=== PATIENT | female | born 1990 | race Hispanic/Latino ===

== ENCOUNTER 2021-02-11 09:27 | Outpatient (CLI) | payer OTHER ==
[2021-02-11] MEDS ORDERED: LACTATED RINGERS 1,000 ML IV ONE (10:15)
--- NOTE | 2021-02-11 12:46 | Ultrasound Report ---
ULTRASOUND BIOPHYSICAL PROFILE ULTRASOUND OB LIMITED INDICATION: well being TECHNIQUE: Transabdominal ultrasound imaging. COMPARISON: None FINDINGS: breathing movement = 2 Gross body movement = 2 tone = 2 Qualitative amniotic fluid volume = 2 Total biophysical score = 8/8 Amniotic fluid index is 19.5 cm. Presentation is cephalic. heart rate is 131 beats per minute. IMPRESSION: biophysical profile equals 8/8. Signer Name: Warren Staley Jr, MD Signed: 02/11/2021 12:42 PM Workstation Name: [id number]
[2021-02-11 13:19] LABS: Bacteria,Urine 1+ /HPF (Negative); Bilirubin,Urine NEG (Negative); Blood,Urine NEG (Negative); Color,Urine Yellow (Yellow); Mucus,Urine FEW /HPF; Protein,Urine <15 mg/dL mg/dL (Negative); Urobilinogen,Urine < 2.0 mg/dL (<2.0)
[2021-02-11 13:28] VITALS: BP 112/56
== END 2021-02-11 14:11 | disposition home or self-care (01) ==
LOC: TRG 09:27 → APU 09:28 → TRG 14:11
PROVIDERS: ATTEND Obstetrics & Gynecology
DX: Z34.93 Encounter for supervision of normal pregnancy, unspecified, third trimester (principal); Z3A.38 38 weeks gestation of pregnancy
CPT/HCPCS: 59025; 76815; 76819; 81001; J7120

== ENCOUNTER 2021-02-13 08:18 | Inpatient (IN) | payer OTHER ==
[2021-02-13] MEDS ORDERED: ONDANSETRON 4 MG/2 ML INJ IV PRN (08:44)
[2021-02-13] MEDS ORDERED: ePHEDrine SULFATE 50 MG/1 ML INJ IV PRN ×2 (08:44→12:00)
[2021-02-13] MEDS ORDERED: OXYTOCIN 10 UNIT/1 ML INJ IM PRN (08:44)
[2021-02-13] MEDS ORDERED: ACETAMINOPHEN 325 MG TAB PO PRN (08:44)
[2021-02-13] MEDS ORDERED: miSOPROStol 200 MCG TAB PR PRN (08:44)
[2021-02-13] MEDS ORDERED: TERBUTALINE 1 MG/1 ML INJ SUB-Q PRN (08:44)
[2021-02-13] MEDS ORDERED: fentaNYL 100 MCG/2 ML INJ IV PRN (08:44)
[2021-02-13] MEDS ORDERED: CARBOPROST TROMETHAMINE 250 MCG/1 ML INJ IM PRN (08:44)
[2021-02-13] MEDS ORDERED: BUTORPHANOL 2 MG/1 ML INJ IV PRN (08:44)
[2021-02-13] MEDS ORDERED: METHYLERGONOVINE MALEATE 0.2 MG/ML VIAL IM PRN (08:44)
[2021-02-13] MEDS ORDERED: LOPERAMIDE 2 MG CAP PO PRN (08:44)
[2021-02-13] MEDS ORDERED: LIDOCAINE (2%) 20 MG/1 ML VIAL 20 ML MDV INFILTRATI ONE (08:44)
[2021-02-13] MEDS ORDERED: NALOXONE 0.4 MG/1 ML INJ IV PRN (08:44)
[2021-02-13] MEDS ORDERED: OXYTOCIN DRIP 30 UNITS/500 ML BAG IV SCH ×3 (09:00→17:00)
[2021-02-13 09:49] LABS: Hematocrit 41.3 % (30.3-42.9); Mean Corpuscular HGB Conc 34 % (30-34); Mean Corpuscular Volume 87 fl (79-97); Platelet Count 184 K/mm3 (140-440); Red Blood Count 4.75 M/mm3 (3.65-5.03)
[2021-02-13] MEDS: LACTATED RINGERS 1,000 ML IV SCH ×2 (10:18→11:31)
--- NOTE | 2021-02-13 11:47 | Anesthesia Consultation ---
Anesthesia Consult and Med Hx Date of service: 02/13/21 - Airway Anesthetic Teeth Evaluation: Poor ROM Head & Neck: Adequate Mental/Hyoid Distance: Adequate Mallampati Class: Class II - Pulmonary Exam CTA: Yes - Cardiac Exam Cardiac Exam: RRR - Pre-Operative Health Status ASA Pre-Surgery Classification: ASA2 Proposed Anesthetic Plan: Epidural - Pulmonary Hx Smoking: Yes (quit 2months ago) Hx Asthma: No Hx Respiratory Symptoms: No SOB: No COPD: No Home Oxygen Therapy: No Hx Pneumonia: No Hx Sleep Apnea: No - Cardiovascular System Hx Hypertension: No Hx Coronary Artery Disease: No Hx Heart Attack/AMI: No Hx Angina: No Hx Percutaneous Transluminal Coronary Angioplasty (PTCA): No Hx Cardia Arrhythmia: No Hx Pacemaker: No Hx Internal Defibrillator: No Hx Valvular Heart Disease: No Hx Heart Murmur: No Hx Peripheral Vascular Disease: No - Central Nervous System Hx Neuromuscular Disorder: Yes (Discectomy L4-5, L5-S1) Hx Seizures: No CVA: No Hx Back Pain: No Hx Psychiatric Problems: No - Gastrointestinal Hx Ulcer: No Hx Gastroesophageal Reflux Disease: Yes - Endocrine Hx Renal Disease: No Hx End Stage Renal Disease: No Hx Cirrhosis: No Hx Liver Disease: No Hx Insulin Dependent Diabetes: No Hx Non-Insulin Dependent Diabetes: No Hx Thyroid Disease: No Hx Hypothyroidism: No Hx Hyperthyroidism: No - Hematic Hx Anemia: No Hx Sickle Cell Disease: No - Other Systems Hx Alcohol Use: No Hx Substance Use: No Hx Cancer: No Hx Obesity: Yes
--- NOTE | 2021-02-13 11:52 | Progress Note ---
Labor Epidural - Labor Epidural Start Time: 10:50 Stop Time: 11:10 Performed by:: BRANDEN GAGE Procedure: Patient is requesting a laboring epidural for laboring pain. Patient IDed, H&P reviewed, all questions and concerns were answered, and consent was signed. Timeout was performed at bedside. Patient in sitting position. Sterile prep and drape was performed. [3] ml of 1% lidocaine skin wheal at L[3]- L [4]. 18- gauge Kimani epidural needle was advanced to loss of resistance with saline technique 6cm x one attempt. Negative CSF negative blood. Epidural catheter advanced to [10] centimeters. [NEGATIVE] Aspiration [NEGATIVE] test dose. Sterile dressing applied. Patient tolerated procedure.
[2021-02-13] MEDS ORDERED: NALOXONE 2 MG/2 ML INJ IV PRN (12:00)
[2021-02-13] MEDS ORDERED: fentaNYL-BUPIV 2 MCG/ML-0.125% 200 MCG/100 ML BAG EPIDURAL SCH (12:00)
--- NOTE | 2021-02-13 14:16 | History and Physical Report ---
History of Present Illness Date of examination: 02/13/21 Date of admission: 02/13/21 08:19 Chief complaint: contractions, my water broke History of present illness: Pt is a 30 year old female NOAH 02/19/2021 at 39w1d who presents with contractions and leakage of fluid since ~730 am this morning. She denies vaginal bleeding. She has had care at [facility] since 15 wks complicated by abnormal pap smear, limited anatomy scan with finding of bilateral pyelectasis with MFM referral and abnormal finding not found, UTI with negative test of cure, and glucose intolerance. She is GBS Negative. Past History Past Medical History: no pertinent history Past Surgical History: other (back surgery in 2010; elbow surgery) [employer] History: abnormal PAP smear Family/Genetic History: diabetes, cancer Social history: no significant social history - Obstetrical History Expected Date of Delivery: 02/19/21 Actual Gestation: 39 Week(s) 1 Day(s) : 3 Para: 1 Hx # Term Pregnancies: 1 Number of Pregnancies: 0 Spontaneous Abortions: 1 Induced : 0 Number of Living Children: 1 Medications and Allergies Allergies Allergy/AdvReac Type Severity Reaction Status Date / Time latex AdvReac Severe Swelling Verified 02/13/21 08:47 Active Meds: Active Medications Acetaminophen (Acetaminophen 325 Mg Tab) 650 mg PO Q4H PRN PRN Reason: Pain, Mild (1-3) Butorphanol Tartrate (Butorphanol 2 Mg/1 Ml Inj) 1 mg IV Q2H PRN PRN Reason: Pain, Moderate(4-6) LABOR PAIN Carboprost Tromethamine (Carboprost Tromethamine 250 Mcg/1 Ml Inj) 250 mcg IM ONCE PRN PRN Reason: Uterine Bleeding Ephedrine Sulfate (Ephedrine Sulfate 50 Mg/1 Ml Inj) 10 mg IV Q2M PRN PRN Reason: Hypotension Ephedrine Sulfate (Ephedrine Sulfate 50 Mg/1 Ml Inj) 10 mg IV Q2M PRN PRN Reason: Hypotension Fentanyl (Fentanyl 100 Mcg/2 Ml Inj) 100 mcg IV Q2H PRN PRN Reason: Pain,Severe (7-10) LABOR PAIN Oxytocin/Sodium Chloride (Pitocin/Ns 30 Unit/500ml) 30 units in 500 mls @ 2 mls/hr IV TITR IRMA; Protocol Lactated Ringer's (Lactated Ringers) 1,000 mls @ 125 mls/hr IV DIRECT IRMA Last Admin: 02/13/21 11:31 Dose: 999 mls/hr Documented by: Oxytocin/Sodium Chloride (Pitocin/Ns 30 Unit/500ml) 30 units in 500 mls @ 40 mls/hr IV TITR IRMA; Protocol Fentanyl/Bupivacaine/Sodium Chlor (Fentanyl-Bupiv 2 Mcg/Ml-0.125%) 200 mcg in 100 mls @ 12 mls/hr EPIDURAL TITR IRMA; Protocol Last Admin: 02/13/21 11:56 Dose: 12 mls/hr Documented by: Loperamide HCl (Loperamide 2 Mg Cap) 2 mg PO ONCE PRN PRN Reason: give with Hemabate Methylergonovine Maleate (Methylergonovine Maleate 0.2 Mg/Ml Vial) 0.2 mg IM ONCE PRN PRN Reason: Uterine Bleeding Mineral Oil (Mineral Oil 30 Ml Oral Liqd) 30 ml PO QHS PRN PRN Reason: Constipation Misoprostol (Misoprostol 200 Mcg Tab) 800 mcg MI ONCE PRN PRN Reason: Uterine Bleeding Naloxone HCl (Naloxone 0.4 Mg/1 Ml Inj) 0.1 mg IV Q2MIN PRN PRN Reason: Res Rate </= 8 or 02 SAT < 92% Naloxone HCl (Naloxone 2 Mg/2 Ml Inj) 0.2 mg IV Q5M PRN PRN Reason: Respiratory sedation Ondansetron HCl (Ondansetron 4 Mg/2 Ml Inj) 4 mg IV Q8H PRN PRN Reason: Nausea And Vomiting Oxytocin (Oxytocin 10 Unit/1 Ml Inj) 10 unit IM ONCE PRN PRN Reason: Uterine Bleeding Terbutaline Sulfate (Terbutaline 1 Mg/1 Ml Inj) 0.25 mg SUB-Q ONCE PRN PRN Reason: Hyperstimulation/Hypertonicity Review of Systems All systems: negative - Vital Signs Vital signs: Vital Signs Pulse BP 99 H 130/62 02/13/21 08:21 02/13/21 08:21 Temp Pulse Resp BP Pulse Ox 71 100/54 98 02/13/21 14:15 02/13/21 14:03 02/13/21 14:15 - Physical Exam Breasts: Positive: deferred Abdomen: Positive: soft (obese, gravid ) Genitourinary (Female): Positive: normal external genitalia Uterus: Positive: enlarged (gravid) Extremities: Positive: edema (trace) - Obstetrical FHR: category 2 Uterine Contraction Monitor Mode: External Cervical Dilatation: 5 Cervical Effacement Percentage: 90 station: -2 Uterine Contraction Pattern: Regular Uterine Tone Measurement Phase: Resting Uterine Contraction Intensity: Moderate Results Result Diagrams: 02/13/21 09:10 Abnormal lab results 02/13/21 Range/Units 09:10 WBC 17.9 H (4.5-11.0) K/mm3 All other labs normal. Assessment and Plan A: IUP at 39w1d SROM Latent Labor Abnormal Pap Smear Limited anatomy scan with finding of bilateral pyelectasis with MFM referral and abnormal finding not found UTI with negative test of cure Glucose intolerance GBS Negative P: Admit to labor and delivery Routine intrapartum care IUPC placed Closely monitor maternal and status
[2021-02-13] MEDS ORDERED: BICITRA ORAL LIQD 30ML PO SCH (16:21)
[2021-02-13] MEDS ORDERED: FAMOTIDINE 20 MG/2 ML INJ IV SCH (16:21)
[2021-02-13] MEDS ORDERED: METOCLOPRAMIDE 10 MG/2 ML INJ IV SCH (16:21)
[2021-02-13] MEDS ORDERED: LACTATED RINGERS 1,000 ML IV SCH (16:30)
[2021-02-13] MEDS ORDERED: ceFAZolin/Water 2 GM/20 ML 2 GM/20 ML SYRINGE IV NR (17:00)
--- NOTE | 2021-02-13 17:43 | Anesthesia Day of Surgery ---
Anesthesia Day of Surgery - Day of Surgery Patient Examined: Yes Patient H&P Reviewed: Yes Patient is NPO: Yes Beta Blockers: No Cardiac Clearance: No Pulmonary Clearance: No Juan Diego's Test: N/A
[2021-02-13] MEDS ORDERED: ONDANSETRON 4 MG/2 ML INJ ONE (18:10)
[2021-02-13] MEDS ORDERED: PHENYLEPHRINE/NS 1,000 MCG/10 ML SYRINGE (OR USE) IV ONE (18:10)
[2021-02-13] MEDS ORDERED: WATER FOR IRRIG STERILE 1,500 ML BOTTLE IR ONE (18:22)
[2021-02-13] MEDS ORDERED: SODIUM CHLORIDE 0.9% IRR 1,500 ML BOTTLE IR ONE (18:22)
[2021-02-13] MEDS ORDERED: BUPIVACAINE/PF (0.25%) 2.5 MG/ML 30 ML VIAL INFILTRATI ONE ×2 (18:29)
[2021-02-13] MEDS ORDERED: CARBOPROST TROMETHAMINE 250 MCG/1 ML INJ IM ONE (18:40)
[2021-02-13] MEDS ORDERED: miSOPROStol 200 MCG TAB ONE (18:40)
[2021-02-13] MEDS ORDERED: PHENYLEPHRINE 10 MG/1 ML INJ SDV ONE (18:50)
[2021-02-13] MEDS ORDERED: dexAMETHasone 20 MG/5 ML VIAL ONE (19:54)
--- NOTE | 2021-02-13 20:00 | Procedure Note ---
OB Delivery Note - Delivery Date of Delivery: 02/13/21 Surgeon: RANJNAA ANSARI - Section Preop diagnosis: nonreassuring FHR tracing Postop diagnosis: same section procedure: section, primary low transverse Disposition: PACU Complications: intra-op hemorrhage Narrative: Please see operative report. - Infant A at 1 minute: 5 at 5 minutes: 8 Gender: Male (3170g (7lb 0oz) @ 1837 pm)
--- NOTE | 2021-02-13 20:08 | Operative Report ---
Operative Report Operative Report: Date of procedure: February 13, 2021 Preoperative diagnosis: 1) IUP at 39w1d 2) SROM 3) NRFHTs- repetitive late decelerations 4) Obesity Postoperative diagnosis: Same Procedure: Primary low transverse section Surgeon: Lyubov Montalvo M.D. Anesthesia: Regional Findings: 1) Viable male , Apgars 5 and 8, weight 3170 g, (7 lb 0 oz) in cephalic presentation. Terminal Meconium. 2) Normal-appearing uterus ovaries and tubes Estimated blood loss: 0 mL IV fluids: 1300 mL Urine output: 150 mL, blood tinged at the end of the procedure Drains: Beverly to gravity Specimens: None Complications:None. Counts correct x 3 Disposition: Stable to PACU Indication for procedure: Pt is a 30 year old female at 39w1d admitted for SROM who progressed to 7 cm and began having repetitive late decelerations. The decision was made to proceed with delivery. Operation in detail: After the risks, benefits, alternatives and complications were explained to the patient she gave informed consent for the procedure. She was subsequently taken to the operating room where regional anesthesia was noted to be adequate. She was placed in the dorsal supine position with leftward tilt and prepped and draped in a normal sterile fashion. heart tones were noted prior to incision. A timeout was performed. A Pfannenstiel skin incision was made with the knife and carried down to the layer of the fascia with the Bovie. The fascia was incised in the midline and the fascial incision was extended bilaterally with the Bovie. The fascial incision was then stretched. The rectus muscles were then in the midline and partially transected for adequate visualization. The peritoneum was then entered bluntly. The peritoneal incision was extended with good visualization of the bladder. The peritoneal incision was then stretched. An Terrence retractor was placed. The bladder blade was then placed. The vesicouterine peritoneum was grasped with smooth pick ups and incised with Metzenbaum scissors. A bladder flap was then created digitally and the bladder blade was replaced. A transverse incision was made in the lower uterine segment with a knife and extended bilaterally with the bandage scissors with the shoulder visible with the hysterotomy. The head delivered with difficulty and with the help of a vaginal hand and after extending the hysterotomy vertically both superior and inferior to the horizontal portion of the incision, followed by delivery of the shoulders and body. bulb suctioned at delivery. Cord clamped and cut. handed to NICU staff in attendance. The placenta was then delivered manually. The uterus was then exteriorized and cleared of all clots and debris. The vertical portions of the hysterotomy were reapproximated with 0-Monocryl in a running locked fashion. The horizontal portion of the hysterotomy was then reapproximated with 0 Monocryl in a running locked fashion. The left apex of the incision was reapproximated with 2-0 Chromic in a running locked fashion. The hysterotomy was inspected and hemostasis was noted. The gutters were irrigated and cleared of all clots and debris. The uterus was placed back into the peritoneal cavity. The hysterotomy was again inspected and noted to be hemostatic. Surgicel was placed over the hysterotomy. The Terrence retractor was removed. The peritoneum was reapproximated with 0 Monocryl in a running fashion incorporating the rectus muscles. Surgicel was placed over the rectus muscles. The fascia was reapproximated with 0 Vicryl in a running fashion. The subcutaneous tissue was reapproximated with 3-0 Vicryl in a running fashion. The skin was reapproximated with 3-0 Monocryl in a subcuticular fashion. The incision was then covered with steri strips and a pressure dressing. The procedure was then ended. The patient tolerated the procedure well and was taken to the PACU in stable condition. All instrument, lap, and needle counts were correct 3.
--- NOTE | 2021-02-13 20:36 | Progress Note ---
Objective - Constitutional Vitals: Vital Signs - 12hr 02/13/21 02/13/21 02/13/21 08:21 08:38 08:43 Temperature Pulse Rate 99 H 85 120 H Respiratory Rate Blood Pressure 130/62 O2 Sat by Pulse 98 97 Oximetry O2 Sat by Pulse Oximetry [ Posterior Bilateral Throughout] 02/13/21 02/13/21 02/13/21 08:48 08:50 08:56 Temperature Pulse Rate 122 H 98 H Respiratory Rate Blood Pressure O2 Sat by Pulse 97 98 Oximetry O2 Sat by Pulse 98 Oximetry [ Posterior Bilateral Throughout] 02/13/21 02/13/21 02/13/21 09:01 09:06 09:11 Temperature Pulse Rate 79 92 H 106 H Respiratory Rate Blood Pressure 121/71 O2 Sat by Pulse 97 97 97 Oximetry O2 Sat by Pulse Oximetry [ Posterior Bilateral Throughout] 02/13/21 02/13/21 02/13/21 09:16 09:21 09:26 Temperature Pulse Rate 94 H 85 97 H Respiratory Rate Blood Pressure 118/63 O2 Sat by Pulse 97 97 98 Oximetry O2 Sat by Pulse Oximetry [ Posterior Bilateral Throughout] 02/13/21 02/13/21 02/13/21 09:31 09:36 09:50 Temperature Pulse Rate 88 107 H 85 Respiratory Rate Blood Pressure O2 Sat by Pulse 97 97 98 Oximetry O2 Sat by Pulse Oximetry [ Posterior Bilateral Throughout] 02/13/21 02/13/21 02/13/21 09:55 10:00 10:05 Temperature Pulse Rate 76 67 77 Respiratory Rate Blood Pressure O2 Sat by Pulse 96 99 98 Oximetry O2 Sat by Pulse Oximetry [ Posterior Bilateral Throughout] 02/13/21 02/13/21 02/13/21 10:08 10:10 10:15 Temperature Pulse Rate 76 71 69 Respiratory Rate Blood Pressure 114/63 O2 Sat by Pulse 99 100 Oximetry O2 Sat by Pulse Oximetry [ Posterior Bilateral Throughout] 02/13/21 02/13/21 02/13/21 10:20 10:21 10:25 Temperature Pulse Rate 67 76 81 Respiratory Rate Blood Pressure 128/69 O2 Sat by Pulse 100 96 Oximetry O2 Sat by Pulse Oximetry [ Posterior Bilateral Throughout] 02/13/21 02/13/21 02/13/21 10:30 10:35 10:40 Temperature Pulse Rate 79 77 84 Respiratory Rate Blood Pressure O2 Sat by Pulse 99 99 100 Oximetry O2 Sat by Pulse Oximetry [ Posterior Bilateral Throughout] 02/13/21 02/13/21 02/13/21 10:45 10:50 10:55 Temperature Pulse Rate 77 70 69 Respiratory Rate Blood Pressure O2 Sat by Pulse 99 100 99 Oximetry O2 Sat by Pulse Oximetry [ Posterior Bilateral Throughout] 02/13/21 02/13/21 02/13/21 10:58 11:00 11:02 Temperature Pulse Rate 75 76 86 Respiratory Rate Blood Pressure 112/68 113/65 112/65 O2 Sat by Pulse 98 Oximetry O2 Sat by Pulse Oximetry [ Posterior Bilateral Throughout] 02/13/21 02/13/21 02/13/21 11:04 11:05 11:06 Temperature Pulse Rate 76 71 77 Respiratory Rate Blood Pressure 116/65 117/64 O2 Sat by Pulse 98 Oximetry O2 Sat by Pulse Oximetry [ Posterior Bilateral Throughout] 02/13/21 02/13/21 02/13/21 11:08 11:10 11:12 Temperature Pulse Rate 77 81 88 Respiratory Rate Blood Pressure 117/62 111/55 116/59 O2 Sat by Pulse 98 Oximetry O2 Sat by Pulse Oximetry [ Posterior Bilateral Throughout] 02/13/21 02/13/21 02/13/21 11:14 11:15 11:19 Temperature Pulse Rate 84 85 100 H Respiratory Rate Blood Pressure 119/58 110/61 O2 Sat by Pulse 98 Oximetry O2 Sat by Pulse Oximetry [ Posterior Bilateral Throughout] 02/13/21 02/13/21 02/13/21 11:20 11:22 11:24 Temperature Pulse Rate 107 H 111 H 92 H Respiratory Rate Blood Pressure 113/67 112/66 116/56 O2 Sat by Pulse 98 Oximetry O2 Sat by Pulse Oximetry [ Posterior Bilateral Throughout] 02/13/21 02/13/21 02/13/21 11:25 11:26 11:28 Temperature Pulse Rate 110 H 108 H 106 H Respiratory Rate Blood Pressure 110/55 116/56 O2 Sat by Pulse 98 Oximetry O2 Sat by Pulse Oximetry [ Posterior Bilateral Throughout] 02/13/21 02/13/21 02/13/21 11:30 11:32 11:34 Temperature Pulse Rate 77 85 99 H Respiratory Rate Blood Pressure 113/58 111/57 110/58 O2 Sat by Pulse 98 Oximetry O2 Sat by Pulse Oximetry [ Posterior Bilateral Throughout] 08/02/13/21 02/13/21 11:35 11:36 11:38 Temperature Pulse Rate 129 H 88 84 Respiratory Rate Blood Pressure 114/57 115/59 O2 Sat by Pulse 98 Oximetry O2 Sat by Pulse Oximetry [ Posterior Bilateral Throughout] 02/13/21 02/13/21 02/13/21 11:40 11:44 11:45 Temperature Pulse Rate 65 78 97 H Respiratory Rate Blood Pressure 105/56 O2 Sat by Pulse 97 97 Oximetry O2 Sat by Pulse Oximetry [ Posterior Bilateral Throughout] 02/13/21 02/13/21 02/13/21 11:50 11:54 11:55 Temperature Pulse Rate 66 90 64 Respiratory Rate Blood Pressure 103/54 103/55 O2 Sat by Pulse 97 98 Oximetry O2 Sat by Pulse Oximetry [ Posterior Bilateral Throughout] 02/13/21 02/13/21 02/13/21 11:59 12:00 12:04 Temperature Pulse Rate 76 68 93 H Respiratory Rate Blood Pressure 105/59 104/53 O2 Sat by Pulse 97 Oximetry O2 Sat by Pulse Oximetry [ Posterior Bilateral Throughout] 02/13/21 02/13/21 02/13/21 12:05 12:10 12:11 Temperature Pulse Rate 67 75 90 Respiratory Rate Blood Pressure 108/54 O2 Sat by Pulse 97 97 Oximetry O2 Sat by Pulse Oximetry [ Posterior Bilateral Throughout] 02/13/21 02/13/21 02/13/21 12:15 12:19 12:20 Temperature Pulse Rate 104 H 98 H 110 H Respiratory Rate Blood Pressure 108/58 107/59 O2 Sat by Pulse 97 97 Oximetry O2 Sat by Pulse Oximetry [ Posterior Bilateral Throughout] 02/13/21 02/13/21 02/13/21 12:24 12:25 12:30 Temperature Pulse Rate 100 H 72 88 Respiratory Rate Blood Pressure 110/59 104/58 O2 Sat by Pulse 97 96 Oximetry O2 Sat by Pulse Oximetry [ Posterior Bilateral Throughout] 02/13/21 02/13/21 02/13/21 12:35 12:40 12:45 Temperature Pulse Rate 100 H 105 H 70 Respiratory Rate Blood Pressure O2 Sat by Pulse 96 97 98 Oximetry O2 Sat by Pulse Oximetry [ Posterior Bilateral Throughout] 02/13/21 02/13/21 02/13/21 12:48 12:50 12:55 Temperature Pulse Rate 96 H 80 79 Respiratory Rate Blood Pressure 103/57 O2 Sat by Pulse 97 97 Oximetry O2 Sat by Pulse Oximetry [ Posterior Bilateral Throughout] 02/13/21 02/13/21 02/13/21 13:00 13:03 13:05 Temperature Pulse Rate 81 86 86 Respiratory Rate Blood Pressure 107/53 O2 Sat by Pulse 96 97 Oximetry O2 Sat by Pulse Oximetry [ Posterior Bilateral Throughout] 02/13/21 02/13/21 02/13/21 13:10 13:15 13:18 Temperature Pulse Rate 90 79 101 H Respiratory Rate Blood Pressure 102/51 O2 Sat by Pulse 97 97 Oximetry O2 Sat by Pulse Oximetry [ Posterior Bilateral Throughout] 02/13/21 02/13/21 02/13/21 13:20 13:25 13:30 Temperature Pulse Rate 89 82 87 Respiratory Rate Blood Pressure O2 Sat by Pulse 97 97 97 Oximetry O2 Sat by Pulse Oximetry [ Posterior Bilateral Throughout] 02/13/21 02/13/21 02/13/21 13:34 13:35 13:40 Temperature Pulse Rate 89 102 H 91 H Respiratory Rate Blood Pressure 103/58 O2 Sat by Pulse 98 98 Oximetry O2 Sat by Pulse Oximetry [ Posterior Bilateral Throughout] 02/13/21 02/13/21 02/13/21 13:45 13:49 13:50 Temperature Pulse Rate 85 76 86 Respiratory Rate Blood Pressure 104/53 O2 Sat by Pulse 97 97 Oximetry O2 Sat by Pulse Oximetry [ Posterior Bilateral Throughout] 02/13/21 02/13/21 02/13/21 13:55 14:00 14:03 Temperature Pulse Rate 88 68 92 H Respiratory Rate Blood Pressure 100/54 O2 Sat by Pulse 98 97 Oximetry O2 Sat by Pulse Oximetry [ Posterior Bilateral Throughout] 02/13/21 02/13/21 02/13/21 14:05 14:10 14:15 Temperature Pulse Rate 73 73 71 Respiratory Rate Blood Pressure O2 Sat by Pulse 97 96 98 Oximetry O2 Sat by Pulse Oximetry [ Posterior Bilateral Throughout] 02/13/21 02/13/21 02/13/21 14:18 14:20 14:25 Temperature Pulse Rate 83 77 76 Respiratory Rate Blood Pressure 102/59 O2 Sat by Pulse 96 97 Oximetry O2 Sat by Pulse Oximetry [ Posterior Bilateral Throughout] 02/13/21 02/13/21 02/13/21 14:28 14:30 14:35 Temperature 98.4 F Pulse Rate 76 78 Respiratory 16 Rate Blood Pressure O2 Sat by Pulse 98 98 97 Oximetry O2 Sat by Pulse Oximetry [ Posterior Bilateral Throughout] 02/13/21 02/13/21 02/13/21 14:40 14:45 14:48 Temperature Pulse Rate 93 H 71 61 Respiratory Rate Blood Pressure 101/55 O2 Sat by Pulse 97 98 Oximetry O2 Sat by Pulse Oximetry [ Posterior Bilateral Throughout] 02/13/21 02/13/21 02/13/21 14:50 14:55 14:58 Temperature Pulse Rate 59 L 65 59 L Respiratory Rate Blood Pressure 91/51 O2 Sat by Pulse 100 99 Oximetry O2 Sat by Pulse Oximetry [ Posterior Bilateral Throughout] 02/13/21 02/13/21 02/13/21 15:00 15:05 15:10 Temperature Pulse Rate 62 59 L 69 Respiratory Rate Blood Pressure O2 Sat by Pulse 98 100 100 Oximetry O2 Sat by Pulse Oximetry [ Posterior Bilateral Throughout] 02/13/21 02/13/21 02/13/21 15:14 15:15 15:20 Temperature Pulse Rate 69 82 76 Respiratory Rate Blood Pressure 95/53 O2 Sat by Pulse 99 98 Oximetry O2 Sat by Pulse Oximetry [ Posterior Bilateral Throughout] 02/13/21 02/13/21 02/13/21 15:25 15:29 15:30 Temperature Pulse Rate 71 72 66 Respiratory Rate Blood Pressure 103/53 O2 Sat by Pulse 99 99 Oximetry O2 Sat by Pulse Oximetry [ Posterior Bilateral Throughout] 02/13/21 02/13/21 02/13/21 15:35 15:40 15:44 Temperature Pulse Rate 64 71 64 Respiratory Rate Blood Pressure 111/59 O2 Sat by Pulse 100 100 Oximetry O2 Sat by Pulse Oximetry [ Posterior Bilateral Throughout] 02/13/21 02/13/21 02/13/21 15:45 15:50 15:55 Temperature Pulse Rate 78 64 77 Respiratory Rate Blood Pressure O2 Sat by Pulse 100 99 100 Oximetry O2 Sat by Pulse Oximetry [ Posterior Bilateral Throughout] 02/13/21 02/13/21 02/13/21 15:59 16:00 16:05 Temperature Pulse Rate 63 65 73 Respiratory Rate Blood Pressure 124/67 O2 Sat by Pulse 100 100 Oximetry O2 Sat by Pulse Oximetry [ Posterior Bilateral Throughout] 02/13/21 02/13/21 02/13/21 16:10 16:13 16:15 Temperature Pulse Rate 79 64 64 Respiratory Rate Blood Pressure 117/61 O2 Sat by Pulse 100 100 Oximetry O2 Sat by Pulse Oximetry [ Posterior Bilateral Throughout] 02/13/21 02/13/21 02/13/21 16:20 16:25 16:29 Temperature Pulse Rate 66 71 68 Respiratory Rate Blood Pressure 120/69 O2 Sat by Pulse 100 100 Oximetry O2 Sat by Pulse Oximetry [ Posterior Bilateral Throughout] 02/13/21 02/13/21 02/13/21 16:30 16:35 16:40 Temperature Pulse Rate 69 71 75 Respiratory Rate Blood Pressure O2 Sat by Pulse 100 100 100 Oximetry O2 Sat by Pulse Oximetry [ Posterior Bilateral Throughout] 02/13/21 02/13/21 02/13/21 16:43 16:45 16:50 Temperature Pulse Rate 74 66 72 Respiratory Rate Blood Pressure 115/66 O2 Sat by Pulse 100 98 Oximetry O2 Sat by Pulse Oximetry [ Posterior Bilateral Throughout] 02/13/21 02/13/21 02/13/21 16:55 16:58 17:00 Temperature Pulse Rate 72 71 74 Respiratory Rate Blood Pressure 123/76 O2 Sat by Pulse 96 96 Oximetry O2 Sat by Pulse Oximetry [ Posterior Bilateral Throughout] 02/13/21 02/13/21 02/13/21 17:05 17:10 17:13 Temperature Pulse Rate 68 69 71 Respiratory Rate Blood Pressure 114/67 O2 Sat by Pulse 97 99 Oximetry O2 Sat by Pulse Oximetry [ Posterior Bilateral Throughout] 02/13/21 02/13/21 02/13/21 17:15 17:20 17:25 Temperature Pulse Rate 68 69 94 H Respiratory Rate Blood Pressure O2 Sat by Pulse 98 98 98 Oximetry O2 Sat by Pulse Oximetry [ Posterior Bilateral Throughout] 02/13/21 02/13/21 02/13/21 17:28 17:30 17:35 Temperature Pulse Rate 65 67 74 Respiratory Rate Blood Pressure 119/63 O2 Sat by Pulse 100 100 Oximetry O2 Sat by Pulse Oximetry [ Posterior Bilateral Throughout] 02/13/21 02/13/21 17:41 17:43 Temperature Pulse Rate 105 H 103 H Respiratory Rate Blood Pressure 113/55 O2 Sat by Pulse 99 Oximetry O2 Sat by Pulse Oximetry [ Posterior Bilateral Throughout] - Labs CBC & Chem 7: 02/13/21 09:10 Labs: Abnormal lab results 02/13/21 Range/Units 09:10 WBC 17.9 H (4.5-11.0) K/mm3 Regional Anesthesia Block - Regional Anesthesia Block Start Time: 20:20 Stop Time: 20:25 Performed By:: BRANDEN GAGE Procedure: Patient consented for TAP block for post surgical pain management. Patient identified, monitors placed, and time out performed. TAP identified bilaterally via ultrasound. Skin prepped bilaterally with [chlorhexidine] and [22g stimuplex] needle advanced to the TAP. [Marcaine 0.25% 35ml] injected under ultrasound guidance on the [left] side. [Marcaine 0.25% 35ml] injected under ultrasound guidance on the [right] side. Negative aspiration every 5mL, No change in heart rate or rhythm. Patient tolerated the procedure well. No apparent complications seen.
[2021-02-13 20:44] LABS: Hematocrit 34.6 % (30.3-42.9); Hemoglobin 11.6 gm/dl (10.1-14.3)
[2021-02-13] MEDS ORDERED: MINERAL OIL 30 ML ORAL LIQD PO PRN (22:00)
[2021-02-14] MEDS ORDERED: MAGNESIUM HYDROXIDE (MOM) ORAL LIQD UDC PO PRN (01:20)
[2021-02-14] MEDS ORDERED: SENNOSIDES 8.6 MG TAB PO PRN (01:20)
[2021-02-14] MEDS ORDERED: NALOXONE 0.4 MG/1 ML INJ IV PRN (01:20)
[2021-02-14] MEDS ORDERED: LANOLIN/ZINC/DIMETHICONE (LANSINOH) 7 GM TP PRN (01:20)
[2021-02-14] MEDS ORDERED: OXYTOCIN DRIP 30 UNITS/500 ML BAG IV SCH (01:20)
[2021-02-14] MEDS ORDERED: MORPHINE 4 MG/1 ML INJ IV PRN (01:20)
[2021-02-14] MEDS ORDERED: WITCH HAZEL/ GLYCERIN PAD TP PRN (01:20)
[2021-02-14] MEDS ORDERED: KETOROLAC 30 MG/1 ML INJ IV PRN (01:20)
[2021-02-14] MEDS ORDERED: SIMETHICONE 80 MG CHEW TAB PO PRN (01:20)
[2021-02-14] MEDS ORDERED: MORPHINE 2 MG/1 ML INJ IV PRN (01:20)
[2021-02-14] MEDS: ceFAZolin/NS 1 GM/50 ML 1 GM/50 ML BAG IV SCH ×2 (02:00→10:10)
[2021-02-14] MEDS: LACTATED RINGERS 1,000 ML IV SCH (02:00)
--- NOTE | 2021-02-14 03:28 | Post Anesthesia Evaluation ---
- Post Anesthesia Evaluation Patient Participated: Yes Airway Patent: Yes Stable Respiratory Function: Yes Nausea/Vomiting: No Temp > 96.8F: Yes Pain Manageable: Yes Adequeate Hydration: Yes Anesthesia Complications: No Block Receding Appropriately: Yes Patient on Ventilator: No
[2021-02-14] MEDS: oxyCODONE /ACETAMINOPHEN 5-325MG TAB PO PRN ×3 (06:27→21:54)
--- NOTE | 2021-02-14 08:23 | Progress Note ---
Assessment and Plan - Patient Problems (1) delivery delivered Current Visit: Yes Status: Acute Plan to address problem: Patient doing well Routine postoperative care Subjective - Subjective Date of service: 02/14/21 Interval history: The patient reports improvement of her symptoms after removal of her Beverly catheter. She reports being able to void. She is tolerating her diet without complication. Her pain is better controlled. The patient desires a tubal ligation for her contraception. Patient reports: appetite normal, voiding normally, pain well controlled [place]: doing well Objective - Vital Signs Latest vital signs: Vital Signs Temp Pulse Resp BP BP Pulse Ox Pulse Ox 02/14/21 06:27 18 98 02/14/21 03:57 99.1 F 85 18 120/59 97 02/14/21 02:00 18 02/13/21 23:10 98.4 F 77 18 109/58 97 97 02/13/21 22:29 84 29 H 110/63 02/13/21 22:20 75 20 94/53 02/13/21 22:14 100 F H 76 21 100/55 02/13/21 21:45 74 22 93/48 02/13/21 21:35 73 16 78/44 02/13/21 21:15 98.4 F 71 16 87/45 02/13/21 21:00 73 17 87/29 02/13/21 20:45 72 12 84/39 02/13/21 20:30 97.9 F 70 12 78/37 02/13/21 20:12 97.9 F 77 12 75/27 02/13/21 17:43 103 H 113/55 02/13/21 17:41 105 H 99 02/13/21 17:35 74 100 02/13/21 17:30 67 100 02/13/21 17:28 65 119/63 02/13/21 17:25 94 H 98 02/13/21 17:20 69 98 02/13/21 17:15 68 98 02/13/21 17:13 71 114/67 02/13/21 17:10 69 99 02/13/21 17:05 68 97 02/13/21 17:00 74 96 02/13/21 16:58 71 123/76 02/13/21 16:55 72 96 02/13/21 16:50 72 98 02/13/21 16:45 66 100 02/13/21 16:43 74 115/66 02/13/21 16:40 75 100 02/13/21 16:35 71 100 02/13/21 16:30 69 100 02/13/21 16:29 68 120/69 02/13/21 16:25 71 100 02/13/21 16:20 66 100 02/13/21 16:15 64 100 02/13/21 16:13 64 117/61 02/13/21 16:10 79 100 02/13/21 16:05 73 100 02/13/21 16:00 65 100 02/13/21 15:59 63 124/67 02/13/21 15:55 77 100 02/13/21 15:50 64 99 02/13/21 15:45 78 100 02/13/21 15:44 64 111/59 02/13/21 15:40 71 100 02/13/21 15:35 64 100 02/13/21 15:30 66 99 02/13/21 15:29 72 103/53 02/13/21 15:25 71 99 02/13/21 15:20 76 98 02/13/21 15:15 82 99 02/13/21 15:14 69 95/53 02/13/21 15:10 69 100 02/13/21 15:05 59 L 100 02/13/21 15:00 62 98 02/13/21 14:58 59 L 91/51 02/13/21 14:55 65 99 02/13/21 14:50 59 L 100 02/13/21 14:48 61 101/55 02/13/21 14:45 71 98 02/13/21 14:40 93 H 97 02/13/21 14:35 78 97 02/13/21 14:30 76 98 02/13/21 14:28 98.4 F 16 98 02/13/21 14:25 76 97 02/13/21 14:20 77 96 02/13/21 14:18 83 102/59 02/13/21 14:15 71 98 02/13/21 14:10 73 96 02/13/21 14:05 73 97 02/13/21 14:03 92 H 100/54 02/13/21 14:00 68 97 02/13/21 13:55 88 98 02/13/21 13:50 86 97 02/13/21 13:49 76 104/53 02/13/21 13:45 85 97 02/13/21 13:40 91 H 98 02/13/21 13:35 102 H 98 02/13/21 13:34 89 103/58 02/13/21 13:30 87 97 02/13/21 13:25 82 97 02/13/21 13:20 89 97 02/13/21 13:18 101 H 102/51 02/13/21 13:15 79 97 02/13/21 13:10 90 97 02/13/21 13:05 86 97 02/13/21 13:03 86 107/53 02/13/21 13:00 81 96 02/13/21 12:55 79 97 02/13/21 12:50 80 97 02/13/21 12:48 96 H 103/57 02/13/21 12:45 70 98 02/13/21 12:40 105 H 97 02/13/21 12:35 100 H 96 02/13/21 12:30 88 104/58 96 02/13/21 12:25 72 97 02/13/21 12:24 100 H 110/59 02/13/21 12:20 110 H 97 02/13/21 12:19 98 H 107/59 02/13/21 12:15 104 H 108/58 97 02/13/21 12:11 90 108/54 02/13/21 12:10 75 97 02/13/21 12:05 67 97 02/13/21 12:04 93 H 104/53 02/13/21 12:00 68 97 02/13/21 11:59 76 105/59 02/13/21 11:55 64 98 02/13/21 11:54 90 103/55 02/13/21 11:50 66 103/54 97 02/13/21 11:45 97 H 97 02/13/21 11:44 78 105/56 02/13/21 11:40 65 97 02/13/21 11:38 84 115/59 02/13/21 11:36 88 114/57 02/13/21 11:35 129 H 98 02/13/21 11:34 99 H 110/58 02/13/21 11:32 85 111/57 02/13/21 11:30 77 113/58 98 02/13/21 11:28 106 H 116/56 02/13/21 11:26 108 H 110/55 02/13/21 11:25 110 H 98 02/13/21 11:24 92 H 116/56 02/13/21 11:22 111 H 112/66 02/13/21 11:20 107 H 113/67 98 02/13/21 11:19 100 H 110/61 02/13/21 11:15 85 98 02/13/21 11:14 84 119/58 02/13/21 11:12 88 116/59 02/13/21 11:10 81 111/55 98 02/13/21 11:08 77 117/62 02/13/21 11:06 77 117/64 02/13/21 11:05 71 98 02/13/21 11:04 76 116/65 02/13/21 11:02 86 112/65 02/13/21 11:00 76 113/65 98 02/13/21 10:58 75 112/68 02/13/21 10:55 69 99 02/13/21 10:50 70 100 02/13/21 10:45 77 99 02/13/21 10:40 84 100 02/13/21 10:35 77 99 02/13/21 10:30 79 99 02/13/21 10:25 81 96 02/13/21 10:21 76 128/69 02/13/21 10:20 67 100 02/13/21 10:15 69 100 02/13/21 10:10 71 99 02/13/21 10:08 76 114/63 02/13/21 10:05 77 98 02/13/21 10:00 67 99 02/13/21 09:55 76 96 02/13/21 09:50 85 98 02/13/21 09:36 107 H 97 02/13/21 09:31 88 97 02/13/21 09:26 97 H 98 02/13/21 09:21 85 118/63 97 02/13/21 09:16 94 H 97 02/13/21 09:11 106 H 97 02/13/21 09:06 92 H 97 02/13/21 09:01 79 121/71 97 02/13/21 08:56 98 H 98 02/13/21 08:50 98 02/13/21 08:48 122 H 97 02/13/21 08:43 120 H 97 02/13/21 08:38 85 98 Intake and Output 02/13/21 02/14/21 02/14/21 22:59 06:59 14:59 Output Total 210 1500 Balance -210 -1500 Output: Urine 210 1500 Uretheral ([place]) 10 1500 - Exam Breasts: Present: deferred Abdomen: Present: normal appearance - Labs Labs: Abnormal lab results 02/13/21 Range/Units 09:10 WBC 17.9 H (4.5-11.0) K/mm3
[2021-02-14 13:13] LABS: Hematocrit 28.1 % (30.3-42.9); Hemoglobin 9.4 gm/dl (10.1-14.3)
[2021-02-14] MEDS: IBUPROFEN 800 MG TAB PO PRN (16:48)
[2021-02-15] MEDS: oxyCODONE /ACETAMINOPHEN 5-325MG TAB PO PRN (04:14)
[2021-02-15] MEDS ORDERED: MEASLES, MUMPS & RUBELLA 12,500 UNIT/0.5 ML VACCINE SUB-Q ONE (06:00)
[2021-02-15] MEDS ORDERED: TETANUS,DIPH,PERTUSS(ACELL) VACCINE 0.5 ML SYRINGE IM ONE (06:00)
[2021-02-15] MEDS: IBUPROFEN 800 MG TAB PO PRN (06:20)
--- NOTE | 2021-02-15 14:08 | Progress Note ---
Assessment and Plan - Patient Problems (1) delivery delivered Current Visit: Yes Status: Acute Plan to address problem: Patient doing well Discharge home Subjective - Subjective Date of service: 02/15/21 Interval history: The patient reports feeling well. She is tolerating regular diet without complication. Her pain is well controlled. She is ambulating without difficulty. Patient reports: appetite normal, voiding normally, pain well controlled [place]: doing well Objective - Vital Signs Latest vital signs: Vital Signs Temp Pulse Resp BP BP Pulse Ox Pulse Ox 02/15/21 09:00 99 02/15/21 07:23 97.8 F 81 20 103/51 100 02/15/21 00:52 98.0 F 85 16 99/51 98 02/14/21 20:00 99 02/14/21 17:02 98.0 F 112 H 18 107/55 98 02/14/21 16:48 16 02/14/21 14:25 16 Intake and Output 02/14/21 02/15/21 02/15/21 22:59 06:59 14:59 Intake Total 360 120 120 Balance 360 120 120 Intake: Oral 120 Intake, Free Water 360 120 Other: Total, Intake Amount 120 # Voids Void 3 2
--- NOTE | 2021-02-15 14:09 | Discharge Summary ---
Providers - Providers Date of Admission: 02/13/21 08:19 Date of discharge: 02/15/21 Attending physician: RANJANA ANSARI 02/14/21 01:20 Consult to Environmental Field Team Member [CONS] Routine Reason For Exam: Primary care physician: RANJANA ANSARI Hospitalization Reason for admission: active labor, rupture of membranes Delivery: Procedure: section, primary low transverse Discharge diagnosis: IUP at term delivered Hospital course: Patient admitted with gross rupture of membranes. Her intrapartum course was complicated by nonreassuring heart rate tracing. The patient underwent a primary delivery delivery. Postoperative course was uneventful. Condition at discharge: Good Disposition: HOME / SELF CARE / HOMELESS - Discharge Diagnoses (1) delivery delivered Status: Acute Plan - Discharge Medications Prescriptions: Ibuprofen [Motrin] 800 mg PO Q8HR PRN #60 tablet PRN Reason: Pain , Severe (7-10) oxyCODONE /ACETAMINOPHEN [Percocet 5/325] 1 tab PO Q6HR PRN #30 tablet PRN Reason: Pain - Provider Discharge Summary Activity: no sex for 6 weeks, no heavy lifting 4 weeks, no strenuous exercise Diet: routine Instructions: routine Additional instructions: [] Smoking cessation referral if applicable(refer to patient education folder for contact #) [] Refer to [facility] Booklet Call your doctor immediately for: * Fever > 100.5 * Heavy vaginal bleeding ( >1 pad per hour) * Severe persistent headache * Shortness of breath * Reddened, hot, painful area to leg or breast * Drainage or odor from incision. * Keep incision clean and dry at all times and follow doctor's instructions regarding bathing/showering Follow-up in 2 weeks - Follow up plan Forms: [facility] Discharge Summary, Discharge Signature Page
[2021-02-15 15:06] VITALS: BP 120/75
== END 2021-02-15 14:25 | disposition home or self-care (01) | DRG 766 ==
LOC: TRG 08:18 → LD 08:18 → TRG 08:44 → OB 22:52
PROVIDERS: ADMIT Obstetrics & Gynecology; ATTEND Obstetrics & Gynecology
PROC: 10D00Z1 Extraction of Products of Conception, Low, Open Approach (ICD-10-PCS; principal; 2021-02-13)
PROC: 3E0T3BZ Introduction of Anesthetic Agent into Peripheral Nerves and Plexi, Percutaneous Approach (ICD-10-PCS; 2021-02-13)
PROC: 3E0R3BZ Introduction of Anesthetic Agent into Spinal Canal, Percutaneous Approach (ICD-10-PCS; 2021-02-13)
PROC: 00HU33Z Insertion of Infusion Device into Spinal Canal, Percutaneous Approach (ICD-10-PCS; 2021-02-13)
PROC: 3E0234Z Introduction of Serum, Toxoid and Vaccine into Muscle, Percutaneous Approach (ICD-10-PCS; 2021-02-15)
DX: O76 Abnormality in fetal heart rate and rhythm complicating labor and delivery (principal); Z37.0 Single live birth; O99.62 Diseases of the digestive system complicating childbirth; Z20.822 Contact with and (suspected) exposure to COVID-19; K21.9 Gastro-esophageal reflux disease without esophagitis; O77.0 Labor and delivery complicated by meconium in amniotic fluid; O99.214 Obesity complicating childbirth; O99.892 Other specified diseases and conditions complicating childbirth; Z23 Encounter for immunization; Z91.040 Latex allergy status; Z3A.39 39 weeks gestation of pregnancy; Z87.891 Personal history of nicotine dependence; Z83.3 Family history of diabetes mellitus
CPT/HCPCS: 36415; 59025; 76815; 76819; 81001; 85014; 85018; 85027; 86592; 86850; 86900; 86901; G0378; J0690; J1100; J1885; J2370; J2405; J2590; J2765; J7120; U0003

== ENCOUNTER 2021-03-25 08:35 | Day surgery (SDC) | payer OTHER ==
[2021-03-22 09:40] LABS: Hematocrit 36.5 % (30.3-42.9); Hemoglobin 12.5 gm/dl (10.1-14.3); Mean Corpuscular HGB Conc 34 % (30-34); Mean Corpuscular Volume 84 fl (79-97); Platelet Count 240 K/mm3 (140-440); Red Blood Count 4.33 M/mm3 (3.65-5.03); Red Cell Distribution Width 14.4 % (13.2-15.2)
[~2021-03-25 08:35] MED LIST: ACETAMINOPHEN 500 MG TAB PO SCH; CELECOXIB 200 MG CAP PO NR; GABAPENTIN 300 MG CAP PO NR; LACTATED RINGERS 1,000 ML IV SCH; MIDAZOLAM 2 MG/2 ML INJ IV NR; SCOPOLAMINE TRANSDERMAL PATCH 72 HR TD NR
[2021-03-25] MEDS ORDERED: ROCURONIUM 50 MG/5 ML INJ IV ONE (09:06)
[2021-03-25] MEDS ORDERED: propofoL 200 MG/20 ML VIAL IV ONE (09:06)
[2021-03-25] MEDS ORDERED: LIDOCAINE MPF (2%) 20 MG/1 ML VIAL 5 ML ONE (09:06)
[2021-03-25] MEDS ORDERED: fentaNYL 100 MCG/2 ML INJ ONE ×2 (09:06→11:01)
--- NOTE | 2021-03-25 09:17 | Short Stay Summary ---
Short Stay Documentation Date of service: 03/25/21 Narrative H&P: 30-year-old -0-0-2 with a history of unwanted fertility. The patient is aware of other contraceptive options and has elected for permanent sterilization. - History Principal diagnosis: Unwanted fertility Past Medical History: No medical history Past Surgical History: Social history: - Allergies and Medications Current Medications: Allergies latex Adverse Reaction (Severe, Verified 03/21/21 16:46) Swelling Home Medications Medication Instructions Recorded Confirmed Last Taken Type No Known Home Medications [No 03/21/21 03/21/21 Unknown History Reported Home Medications] Active Medications Acetaminophen (Acetaminophen 500 Mg Tab) 1,000 mg PO PREOP IRMA Stop: 03/25/21 23:59 Celecoxib (Celecoxib 200 Mg Cap) 200 mg PO PREOP NR Stop: 03/25/21 23:59 Gabapentin (Gabapentin 300 Mg Cap) 300 mg PO PREOP NR Stop: 03/25/21 23:59 Lactated Ringer's (Lactated Ringers) 1,000 mls @ 100 mls/hr IV DIRECT IRMA Stop: 03/25/21 23:59 Last Admin: 03/25/21 09:05 Dose: 100 mls/hr Documented by: Midazolam HCl (Midazolam 2 Mg/2 Ml Inj) 2 mg IV PREOP NR Stop: 03/25/21 23:59 Scopolamine (Scopolamine Transdermal Patch 72 Hr) 1 each TD PREOP NR Stop: 03/25/21 23:59 - Physical exam General appearance: no acute distress Integumentary: no rash HEENT: Atraumatic Lungs: Clear to auscultation Breasts: deferred Heart: Regular rate Gastrointestinal: normal Female Genitourinary: deferred Rectal Exam: deferred - Brief post op/procedure progress note Date of procedure: 03/25/21 Pre-op diagnosis: Unwanted fertility Post-op diagnosis: same Procedure: Laparoscopy Bilateral salpingectomy Excision of ovarian cyst Anesthesia: TINY Surgeon: CARLTON BALLESTEROS Estimated blood loss: minimal Pathology: list (Bilateral fallopian tubes; ovarian cyst) Specimen disposition: to lab Condition: stable - Hospital course Hospital course: The patient was admitted the day of surgery underwent a bilateral salpingectomy and removal of a left ovarian cyst please see operative note for details of surgery. Postoperative course was uneventful. - Disposition Condition at discharge: Good Disposition: 01 HOME / SELF CARE / HOMELESS Short Stay Discharge Plan Activity: other (Pelvic rest for 1 week) Diet: regular Additional Instructions: Follow-up is not required Follow-up as needed Prescriptions: Ibuprofen [Motrin] 800 mg PO Q8HR PRN #30 tablet PRN Reason: Pain , Severe (7-10) HYDROcodone/APAP 5-325 [[place] 5/325] 1 each PO Q6HR PRN #15 tablet PRN Reason: Pain
[2021-03-25] MEDS ORDERED: oxyCODONE /ACETAMINOPHEN 5-325MG TAB PO PRN (09:22)
[2021-03-25] MEDS ORDERED: HYDROmorphone 1 MG/1 ML INJ IV PRN (09:22)
[2021-03-25] MEDS ORDERED: ONDANSETRON 4 MG/2 ML INJ IV PRN (09:22)
--- NOTE | 2021-03-25 09:23 | Anesthesia Consultation ---
Anesthesia Consult and Med Hx - Airway Anesthetic Teeth Evaluation: Poor, Chipped ROM Head & Neck: Adequate Mental/Hyoid Distance: Adequate Mallampati Class: Class II Intubation Access Assessment: Probably Good - Pulmonary Exam CTA: Yes - Cardiac Exam Cardiac Exam: RRR - Pre-Operative Health Status ASA Pre-Surgery Classification: ASA2 Proposed Anesthetic Plan: General - Pulmonary Hx Smoking: Yes (Quit smoking 9 months ago) Hx Asthma: No Hx Respiratory Symptoms: No SOB: No COPD: No Hx Pneumonia: No Hx Sleep Apnea: No - Cardiovascular System Hx Hypertension: No Hx Coronary Artery Disease: No Hx Heart Attack/AMI: No Hx Angina: No Hx Percutaneous Transluminal Coronary Angioplasty (PTCA): No Hx Cardia Arrhythmia: No Hx Pacemaker: No Hx Internal Defibrillator: No Hx Valvular Heart Disease: No Hx Heart Murmur: No Hx Peripheral Vascular Disease: No - Central Nervous System Hx Neuromuscular Disorder: Yes (Discectomy L4-5, L5-S1) Hx Seizures: No CVA: No Hx Back Pain: Yes Hx Psychiatric Problems: No - Gastrointestinal Hx Ulcer: No Hx Gastroesophageal Reflux Disease: Yes (well controlled) - Endocrine Hx Renal Disease: No Hx End Stage Renal Disease: No Hx Cirrhosis: No Hx Liver Disease: No Hx Insulin Dependent Diabetes: No Hx Non-Insulin Dependent Diabetes: No Hx Thyroid Disease: No Hx Hypothyroidism: No Hx Hyperthyroidism: No - Hematic Hx Anemia: No Hx Sickle Cell Disease: No - Other Systems Hx Alcohol Use: No Hx Substance Use: No Hx Cancer: No Hx Obesity: Yes - Additional Comments Anesthesia Medical History Comments: No history of anesthetic complications.
--- NOTE | 2021-03-25 09:24 | Anesthesia Day of Surgery ---
Anesthesia Day of Surgery - Day of Surgery Patient Examined: Yes Patient H&P Reviewed: Yes Patient is NPO: Yes
[2021-03-25] MEDS ORDERED: dexAMETHasone 20 MG/5 ML VIAL ONE (10:01)
[2021-03-25] MEDS ORDERED: BUPIVACAINE/PF (0.5%) 5 MG/1 ML 30 ML VIAL INFILTRATI ONE ×2 (10:41→10:47)
[2021-03-25] MEDS ORDERED: SODIUM CHLORIDE 0.9% IRR 1,500 ML BOTTLE IR ONE (10:47)
--- NOTE | 2021-03-25 11:12 | Operative Report ---
Operative Report Operative Report: Date of surgery: March 25, 2021 Preoperative diagnosis: Unwanted fertility Postoperative diagnosis: Same as above Procedure: Laparoscopy; Bilateral salpingectomy; excision of ovarian cyst Surgeon: Starr Milligan M.D. Anesthesia: General endotracheal anesthesia Estimated blood loss: Minimal Pathology: Bilateral fallopian tubes; ovarian cyst Findings: Left ovarian cyst; omental adhesions to the anterior abdominal wall; normal size uterus; adhesions in the anterior cul-de-sac Indication: 30-year-old -0-0-2 with a history of undesired fertility. Procedure: The patient was taken to the operating room and given general endotracheal anesthesia without complication. The patient is prepped and draped in a normal sterile fashion. A bivalve speculum was placed in the patient's vagina and a single-tooth tenaculum was placed on the anterior lip of the cervix .A uterine acorn manipulator was placed, and the bivalve speculum was then removed. Attention was then turned to the patient's abdomen where a 5 mm infraumbilical skin incision was then made. A Veress needle was placed and peritoneal entry was verified water-filled syringe. Insufflation of the peritoneal cavity was performed with CO2 gas. A 5 mm trocar was placed and the laparoscope was then inserted. The patient was then placed in Trendelenburg. A 7 mm suprapubic skin incision was then made. Under direct visualization a 7 mm trocar was then placed. An additional 5 mm left lateral trocar was also placed. General survey of the patient's abdomen revealed multiple omental adhesions to the anterior abdominal wall. There was findings filmy adhesions of the uterus to the anterior abdominal wall with obliteration of the anterior cul-de-sac. The patient had findings of a left ovarian simple cyst.. The fallopian tube was then followed out to the fimbriated end. The Encore device was used in order to coagulate and transect the mesosalpinx. The fallopian tube was excised from the adnexa. The fallopian tube was removed through the 7 mm trocar. This was performed on the contralateral side as well. The Encore was used to excise the left ovarian cyst. The trocars were then removed. The pneumoperitoneum was then released. The 5 mm trocar laparoscope was then removed. The skin incisions were then closed with 4-0 Monocryl. The incisions were injected with quarter percent Marcaine. Dressings were applied to the incision. The vaginal instruments were then removed atraumatically. Then successfully extubated and taken to the recovery room. All sponge laps and needle counts were correct x2.
--- NOTE | 2021-03-25 12:32 | Post Anesthesia Evaluation ---
- Post Anesthesia Evaluation Patient Participated: Yes Airway Patent: Yes Stable Respiratory Function: Yes Nausea/Vomiting: No Temp > 96.8F: Yes Pain Manageable: Yes Adequeate Hydration: Yes Anesthesia Complications: No
[2021-03-25 18:57] VITALS: BP 109/55
== END 2021-03-25 08:36 | disposition home or self-care (01) ==
LOC: OR 08:35
PROVIDERS: ATTEND Obstetrics & Gynecology
DX: Z64.0 Problems related to unwanted pregnancy (principal); N83.202 Unspecified ovarian cyst, left side; K66.0 Peritoneal adhesions (postprocedural) (postinfection); Z20.822 Contact with and (suspected) exposure to COVID-19; K21.9 Gastro-esophageal reflux disease without esophagitis; E66.9 Obesity, unspecified; F17.210 Nicotine dependence, cigarettes, uncomplicated; Z91.040 Latex allergy status; Z79.899 Other long term (current) drug therapy; Z98.890 Other specified postprocedural states
CPT/HCPCS: 36415; 58661; 58662; 84703; 85027; 88302; 88305; J1100; J2405; J2704; J3010; J7120; U0003